=== PATIENT | female | born 1960 | race Caucasian/White ===

== ENCOUNTER → 2017-10-12 | Outpatient (CLI) | payer OTHER ==
--- NOTE | 2017-10-12 10:02 | BD ---
EXAMINATION TYPE: MG DEXA axial skeleton. DATE OF EXAM: 10/12/2017 COMPARISON: NONE CLINICAL HISTORY: osteopenia Height: 5' Weight: 147 FRAX RISK QUESTIONS: Alcohol (3 or more units per day): no Family History (Parent hip fracture): no Glucocorticoids (More than 3mos): no (Ex: prednisone, prednisolone, methylprednisolone, dexamethasone, and hydrocortisone). History of Fracture in Adulthood: no Secondary Osteoporosis: 1. Type 1 Diabetes: no 2. Hyperthyroidism: no 3. Menopause before 45: no 4. Malnutrition: no 5. Chronic liver disease: no Rheumatoid Arthritis: no Current Tobacco Use: no RISK FACTORS HISTORY OF: Diet low in dairy products/other sources of calcium: Postmenopausal woman: MEDICATIONS: Additional Medications: heart, cholsterol,singulair, anxiety, sleep aid Additional History: EXAM MEASUREMENTS: Bone mineral densitometry was performed using the [employer] System. Bone mineral density as measured about the Lumbar spine is: ----- L1-L4(G/cm2): 1.129 T Score Values are as follows: ----- L2: -0.3 ----- L3: -0.1 ----- L4: -0.3 ----- L1-L4: -0.4 Bone mineral density about the R hip (g/cm2): 0.793 Bone mineral density about the L hip (g/cm2): 0.807 T Score values are as follows: -----R Neck: -1.8 -----L Neck: -1.7 -----R Total: -1.0 -----L Total: -0.8 IMPRESSION: Osteopenia (T Score between -2.5 and -1). There is slightly increased risk of fracture and the patient may be considered for treatment. Re-Screen 2-5 years. NOTE: T-SCORE=SD OF THE YOUNG ADULT MEAN.
== END | disposition home or self-care (01) ==
LOC: RADBDWWP 09:21
PROVIDERS: ATTEND Obstetrics & Gynecology
DX: M85.80 Other specified disorders of bone density and structure, unspecified site (principal)
CPT/HCPCS: 77080

== ENCOUNTER → 2018-09-18 | Outpatient (CLI) | payer OTHER ==
--- NOTE | 2018-09-21 16:55 | MM ---
Reason for exam: screening (asymptomatic). Last mammogram was performed 1 year and 1 month ago. History: Family history of breast cancer in maternal grandmother and breast cancer in maternal cousin at age 28. Benign left mammotome panel of the left breast, September 16, 2006. Reductions of both breasts, October 2005. Benign excisional biopsy of the right breast, 1980. Took hormonal contraceptives for 5 years. MG Screening Mammo w CAD Bilateral CC and MLO view(s) were taken. Prior study comparison: August 10, 2017, bilateral MG screening mammo w CAD. July 21, 2016, bilateral MG 3d screening mammo w/cad. There are scattered fibroglandular densities. There are benign-appearing bilateral calcification. No significant changes when compared with prior studies. ASSESSMENT: Benign, BI-RAD 2 RECOMMENDATION: Routine screening mammogram of both breasts in 1 year.
== END ==
LOC: RADMAMWWP 13:09
PROVIDERS: ATTEND Obstetrics & Gynecology
DX: Z12.31 Encounter for screening mammogram for malignant neoplasm of breast (principal)
CPT/HCPCS: 77067

== ENCOUNTER → 2019-10-15 | Outpatient (CLI) | payer OTHER ==
--- NOTE | 2019-10-15 16:55 | BD ---
EXAMINATION TYPE: Axial Bone Density DATE OF EXAM: 10/15/2019 COMPARISON: NONE CLINICAL HISTORY: 57-year-old female postmenopausal screening Height: 5 FT Weight: 152 FRAX RISK QUESTIONS: Alcohol (3 or more units per day): NO Family History (Parent hip fracture): NO Glucocorticoids (More than 3mos): NO (Ex: prednisone, prednisolone, methylprednisolone, dexamethasone, and hydrocortisone). History of Fracture in Adulthood: NO Secondary Osteoporosis: 1. Type 1 Diabetes: NO 2. Hyperthyroidism: NO 3. Menopause before 45: PART AGE 42 4. Malnutrition: NO 5. Chronic liver disease: NO Rheumatoid Arthritis: NO Current Tobacco Use: NO RISK FACTORS HISTORY OF: Active: YES Postmenopausal woman: PART AGE 42 UNSURE MENOPAUSE Lost more than 2 inches in height since high school: YES MEDICATIONS: Additional Medications: BYSTOLIC, HEART MEDS, SIMVASTATIN, GLUCOPHAGE, FISH OIL ,SINGULAIR, Additional History: EXAM MEASUREMENTS: Bone mineral densitometry was performed using the [employer] System. Bone mineral density as measured about the Lumbar spine is: ----- L1-L4(G/cm2): 1.142 T Score Values are as follows: ----- L2: 0.1 ----- L3: -0.1 ----- L4: -0.1 ----- L1-L4: -0.3 Bone mineral density has: INCREASED 1.6 % since study of: 2018 Bone mineral density about the R hip (g/cm2): 0.707 Bone mineral density about the L hip (g/cm2): 0.749 T Score values are as follows: -----R Neck: -2.4 -----L Neck: -2.1 -----R Total: -1.3 -----L Total: -1.3 Bone mineral density has: DECREASED -4.9 % since study of: 2018 IMPRESSION: Osteopenia (T Score between -2.5 and -1). There is slightly increased risk of fracture and the patient may be considered for treatment. Re-Screen 2-5 years. NOTE: T-SCORE=SD OF THE YOUNG ADULT MEAN.
--- NOTE | 2019-10-16 09:56 | MM ---
Reason for exam: screening (asymptomatic). Last mammogram was performed 1 year and 1 month ago. History: Family history of breast cancer in maternal grandmother and breast cancer in maternal cousin at age 28. Benign left mammotome panel of the left breast, September 16, 2006. Reductions of both breasts, October 2005. Benign excisional biopsy of the right breast, 1980. Took hormonal contraceptives for 5 years. Physical Findings: A clinical breast exam by your physician is recommended on an annual basis and results should be correlated with mammographic findings. MG 3D Screening Mammo W/Cad Bilateral CC and MLO view(s) were taken. Prior study comparison: September 18, 2018, bilateral MG screening mammo w CAD. August 10, 2017, bilateral MG screening mammo w CAD. There are scattered fibroglandular densities. No significant changes when compared with prior studies. ASSESSMENT: Benign, BI-RAD 2 RECOMMENDATION: Routine screening mammogram of both breasts in 1 year.
== END | disposition home or self-care (01) ==
LOC: RADMAMWWP 10:19
PROVIDERS: ATTEND Obstetrics & Gynecology
DX: Z12.31 Encounter for screening mammogram for malignant neoplasm of breast (principal); M85.80 Other specified disorders of bone density and structure, unspecified site; N95.1 Menopausal and female climacteric states
CPT/HCPCS: 77063; 77067; 77080

== ENCOUNTER → 2020-02-06 | Outpatient (CLI) | payer OTHER ==
[2020-02-06 13:16] LABS: Basophils % (A) 1 %; Eosinophils # (A) 0.2 k/uL (0-0.7); Eosinophils % (A) 3 %; HCT 41.4 % (34.0-46.0); HGB 13.7 gm/dL (11.4-16.0); Lymphocytes # (A) 2.2 k/uL (1.0-4.8); Lymphocytes % (A) 36 %; MCH 30.4 pg (25.0-35.0); MCV 91.9 fL (80.0-100.0); Mean Platelet Volume 7.9; Monocytes # (A) 0.2 k/uL (0-1.0); Monocytes % (A) 4 %; Neutrophils # (A) 3.4 k/uL (1.3-7.7); Neutrophils % (A) 56 %; Platelet Count 307 k/uL (150-450); RBC 4.51 m/uL (3.80-5.40); RDW 12.7 % (11.5-15.5); WBC 6.1 k/uL (3.8-10.6)
[2020-02-06 18:40] LABS: African American GFR (CKD) 94.2 (60.0-200.0); Albumin 4.4 g/dL (3.80-4.90); Anion Gap 9.8 mmol/L (4.00-12.00); BUN/Creat Ratio 16.25 Ratio (12.00-20.00); Calcium 9.3 mg/dL (8.7-10.3); Carbon Dioxide 26.2 mmol/L (21.6-31.8); Globulin 2.2 g/dL (1.6-3.3); Non-African American GFR(CKD) 81.3 (60.0-200.0); Potassium 4.2 mmol/L (3.5-5.5); Total Bilirubin 0.3 mg/dL (0.2-1.2); Total Protein 6.6 g/dL (6.2-8.2)
== END | disposition home or self-care (01) ==
LOC: LABWHC1 11:02
PROVIDERS: ATTEND Nurse Practitioner Acute Care
DX: R41.3 Other amnesia (principal)
CPT/HCPCS: 36415; 80053; 85025

== ENCOUNTER → 2020-07-05 | Outpatient (CLI) | payer OTHER ==
[2020-07-05 18:11] LABS: African American GFR (CKD) 110.7 (60.0-200.0); Albumin 4.7 g/dL (3.80-4.90); Albumin/Globulin Ratio 1.96 (1.60-3.17); Anion Gap 7.9 mmol/L (4.00-12.00); BUN/Creat Ratio 17.14 Ratio (12.00-20.00); Calcium 9.6 mg/dL (8.7-10.3); Carbon Dioxide 27.1 mmol/L (21.6-31.8); Chol/HDL Ratio 2.85; Globulin 2.4 g/dL (1.6-3.3); LDL Cholesterol,Calculated 75.2 mg/dL (0.0-131.0); Non-African American GFR(CKD) 95.5 (60.0-200.0); Potassium 4.3 mmol/L (3.5-5.5); Total Bilirubin 0.5 mg/dL (0.3-1.2); Total Protein 7.1 g/dL (6.2-8.2); VLDL Calculation 35.8 mg/dL (5.00-40.00)
[2020-07-05 20:29] LABS: Hemoglobin A1C 6.7 % (4.0-6.0)
[2020-07-05 20:44] LABS: Microalbumin Creatinine Ratio <30 mg/g Creat (0-30); Urine Creatinine 12.6 mg/dL
== END | disposition home or self-care (01) ==
LOC: LABMAIN 10:23
PROVIDERS: ATTEND Internal Medicine Endocrinology, Diabetes & Metabolism
DX: E11.65 Type 2 diabetes mellitus with hyperglycemia (principal)
CPT/HCPCS: 36415; 80053; 80061; 82043; 82570; 83036; 84443

== ENCOUNTER → 2020-09-01 | Outpatient (CLI) | payer OTHER | END | disposition home or self-care (01) | LOC: LABWHC1 09:19 | PROVIDERS: ATTEND Internal Medicine | DX: R05 Cough (principal); R50.9 Fever, unspecified | CPT/HCPCS: U0003; C9803 ==

== ENCOUNTER → 2020-10-13 | Outpatient (CLI) | payer OTHER ==
[2020-10-13 20:52] LABS: African American GFR (CKD) 110.7 (60.0-200.0); Albumin 4.8 g/dL (3.80-4.90); Albumin/Globulin Ratio 2.29 (1.60-3.17); Anion Gap 7.6 mmol/L (4.00-12.00); BUN/Creat Ratio 15.71 Ratio (12.00-20.00); Calcium 9.9 mg/dL (8.7-10.3); Carbon Dioxide 30.4 mmol/L (21.6-31.8); Chol/HDL Ratio 2.69; Globulin 2.1 g/dL (1.6-3.3); Non-African American GFR(CKD) 95.5 (60.0-200.0); Potassium 4.4 mmol/L (3.5-5.5); Total Bilirubin 0.3 mg/dL (0.2-1.2); Total Protein 6.9 g/dL (6.2-8.2)
[2020-10-13 22:26] LABS: Hemoglobin A1C 6.8 % (4.0-6.0)
== END | disposition home or self-care (01) ==
LOC: LABWHC1 10:29
PROVIDERS: ATTEND Internal Medicine Endocrinology, Diabetes & Metabolism
DX: E11.9 Type 2 diabetes mellitus without complications (principal)
CPT/HCPCS: 36415; 80053; 80061; 82043; 82570; 83036; 84443

== ENCOUNTER → 2021-01-16 | Outpatient (CLI) | payer OTHER ==
--- NOTE | 2021-01-19 11:04 | MM ---
Reason for exam: screening (asymptomatic). Last mammogram was performed 1 year and 3 months ago. History: Family history of breast cancer in maternal grandmother and breast cancer in maternal cousin at age 28. Benign left mammotome panel of the left breast, September 16, 2006. Reductions of both breasts, October 2005. Benign excisional biopsy of the right breast, 1980. Took hormonal contraceptives for 5 years. Physical Findings: A clinical breast exam by your physician is recommended on an annual basis and results should be correlated with mammographic findings. MG Screening Mammo w CAD Bilateral CC and MLO view(s) were taken. Prior study comparison: October 15, 2019, bilateral MG 3d screening mammo w/cad. September 18, 2018, bilateral MG screening mammo w CAD. There are scattered fibroglandular densities. There are benign appearing round dystrophic calcifications bilaterally. Asymmetric breast tissue in the right breast, stable. There is no discrete abnormality. ASSESSMENT: Benign, BI-RAD 2 RECOMMENDATION: Routine screening mammogram of both breasts in 1 year.
== END | disposition home or self-care (01) ==
LOC: RADMAMWWP 10:01
PROVIDERS: ATTEND Obstetrics & Gynecology
DX: Z12.31 Encounter for screening mammogram for malignant neoplasm of breast (principal); Z80.3 Family history of malignant neoplasm of breast
CPT/HCPCS: 77067

== ENCOUNTER → 2021-03-23 | Outpatient (CLI) | payer OTHER ==
[2021-03-23 15:11] LABS: Basophils # (A) 0.04 X 10*3/uL (0.00-0.10); Basophils % (A) 0.8 %; Eosinophils # (A) 0.13 X 10*3/uL (0.04-0.35); Eosinophils % (A) 2.4 %; HCT 39.8 % (37.2-46.3); HGB 12.9 g/dL (12.0-15.0); Lymphocytes # (A) 2.26 X 10*3/uL (0.90-5.00); Lymphocytes % (A) 42.4 %; MCH 29.5 pg (27.0-32.0); MCHC 32.4 g/dL (32.0-37.0); MCV 90.9 fL (80.0-97.0); Mean Platelet Volume 10.6 fL (9.5-12.2); Monocytes # (A) 0.36 X 10*3/uL (0.20-1.00); Monocytes % (A) 6.8 %; Neutrophils # (A) 2.54 X 10*3/uL (1.80-7.70); Neutrophils % (A) 47.6 %; Platelet Count 283 X 10*3/uL (140-440); RBC 4.38 X 10*6/uL (4.10-5.20); RDW 12.9 % (11.5-14.5); WBC 5.33 X 10*3/uL (4.50-10.00)
[2021-03-23 15:24] LABS: African American GFR (CKD) 93.5 (60.0-200.0); Albumin 4.4 g/dL (3.80-4.90); Albumin/Globulin Ratio 1.76 (1.60-3.17); Anion Gap 8.7 mmol/L (4.00-12.00); BUN/Creat Ratio 17.5 Ratio (12.00-20.00); Calcium 9.6 mg/dL (8.7-10.3); Carbon Dioxide 25.3 mmol/L (21.6-31.8); Chol/HDL Ratio 2.73; Globulin 2.5 g/dL (1.6-3.3); LDL Cholesterol,Calculated 77.2 mg/dL (0.0-131.0); Non-African American GFR(CKD) 80.7 (60.0-200.0); Potassium 4.2 mmol/L (3.5-5.5); Total Bilirubin 0.4 mg/dL (0.3-1.2); Total Protein 6.9 g/dL (6.2-8.2); VLDL Calculation 29.8 mg/dL (5.00-40.00)
[2021-03-23 15:59] LABS: Hemoglobin A1C 6.7 % (4.0-6.0)
== END | disposition home or self-care (01) ==
LOC: LABWHC1 09:49
PROVIDERS: ATTEND Internal Medicine
DX: I10 Essential (primary) hypertension (principal); E11.9 Type 2 diabetes mellitus without complications; E78.00 Pure hypercholesterolemia, unspecified; R41.3 Other amnesia
CPT/HCPCS: 36415; 80053; 80061; 82306; 82607; 83036; 84207; 85025

== ENCOUNTER → 2022-02-15 | Outpatient (CLI) | payer OTHER, BC ==
--- NOTE | 2022-02-15 17:42 | BD ---
EXAMINATION TYPE: Axial Bone Density DATE OF EXAM: 02/15/2022 COMPARISON: 02/15/2020 CLINICAL HISTORY: 61 years year old Female. ICD-10 CODE: M58.89 DISORDER OF BONE DENSITY Height: 60 IN Weight: 158 LBS RISK FACTORS HISTORY OF: Active: YES Diet low in dairy products/other sources of calcium: YES Postmenopausal woman: PARTIAL HYST AGE 56 Lost more than 2 inches in height since high school: YES 3 " MEDICATIONS: Additional Medications: CALCIUM, VIT D, BYSTOLIC, CRESTOR, GLUCOPHAGE, CELEXA, PRILOSEC, SINGULAIR, A MBIEN, ASPIRIN, FISH OIL, ZYRTEC, MULTI VIT EXAM MEASUREMENTS: Bone mineral densitometry was performed using the [employer] System. Bone mineral density as measured about the Lumbar spine is: ----- L1-L4(G/cm2): 1.117 T Score Values are as follows: ----- L1: -1.3 ----- L2: -0.7 ----- L3: -0.2 ----- L4: -0.1 ----- L1-L4: -0.5 Bone mineral density has: Decreased -2.6% since study of: 10/15/2019 Bone mineral density about the R hip (g/cm2): 0.752 Bone mineral density about the L hip (g/cm2): 0.757 T Score values are as follows: -----R Neck: -2.1 -----L Neck: -2.0 -----R Total: -1.4 -----L Total: -1.0 Bone mineral density has: Increased 0.9% since study of: 10/15/2019 FRAX%s: The graph provided illustrates a 9.5 chance for a major osteoporotic fx and a 1.3 chance for the hips probability for fx in 10 years time. IMPRESSION: Osteopenia (T Score between -2.5 and -1). There is slightly increased risk of fracture and the patient may be considered for treatment. Re-Screen 2-5 years. NOTE: T-SCORE=SD OF THE YOUNG ADULT MEAN.
--- NOTE | 2022-02-16 13:24 | MM ---
Reason for Exam: Screening (asymptomatic). Last mammogram was performed 1 year(s) and 1 month(s) ago. Patient History: Menarche at age 15. First Full-Term at age 24. Hysterectomy at age 42. Patient used Hormonal Contraceptives for 5 years. 1980, Benign Excisional Biopsy on the right side. 10/2005, Bilateral Reduction. 09/16/2006, Benign Core Biopsy on the left side. Maternal grandmother had breast cancer, age 30. Maternal cousin had breast cancer, age 28. Risk Values: Shanti 5 year model risk: 1.8%. NCI Lifetime model risk: 8.9%. Prior Study Comparison: 09/18/2018 Bilateral Screening Mammogram, [facility]. 10/15/2019 Bilateral Screening Mammogram, [facility]. 01/16/2021 Bilateral Screening Mammogram, [facility]. Tissue Density: There are scattered fibroglandular densities. Findings: Analyzed By CAD. No suspicious groups of microcalcifications, spiculated or lobular masses, architectural distortion or other secondary signs of malignancy are mammographically apparent. Overall Assessment: Benign, BI-RAD 2 Management: Screening Mammogram of both breasts in 1 year. A negative mammogram report should not preclude additional follow up of suspicious palpable abnormalities. Patient should continue monthly self breast exam. A clinical breast exam by your physician is recommended on an annual basis and results should be correlated with mammographic findings. Electronically signed and approved by: Inderjit Landa D.O. Radiologis
== END | disposition home or self-care (01) ==
LOC: RADBDWWP 11:19
PROVIDERS: ATTEND Internal Medicine
DX: Z12.39 Encounter for other screening for malignant neoplasm of breast (principal); M85.89 Other specified disorders of bone density and structure, multiple sites
CPT/HCPCS: 77063; 77067; 77080

== ENCOUNTER → 2023-02-24 | Outpatient (CLI) | payer BC ==
--- NOTE | 2023-02-25 06:54 | MM ---
Reason for Exam: Screening (asymptomatic). Last screening mammogram was performed 12 month(s) ago. Patient History: Menarche at age 15. First Full-Term at age 24. Hysterectomy at age 42. Patient used Hormonal Contraceptives for 5 years. 1980, Benign Excisional Biopsy on the right side. 10/2005, Bilateral Reduction. 09/16/2006, Benign Core Biopsy on the left side. Maternal grandmother had breast cancer, age 30. Maternal cousin had breast cancer, age 28. Risk Values: Shanti 5 year model risk: 1.8%. NCI Lifetime model risk: 8.7%. Prior Study Comparison: 10/15/2019 Bilateral Screening Mammogram, [facility]. 01/16/2021 Bilateral Screening Mammogram, [facility]. 02/15/2022 Bilateral MG 3D screening mammo w/cad, [facility]. Tissue Density: There are scattered fibroglandular densities. Findings: Analyzed By CAD. A few loosely grouped benign appearing round and dystrophic calcifications bilaterally are redemonstrated. There is no suspicious group of microcalcifications or new suspicious mass in either breast. Overall Assessment: Benign, BI-RAD 2 Management: Screening Mammogram of both breasts in 1 year. . Patient should continue monthly self-breast exams. A clinical breast exam by your physician is recommended on an annual basis. This exam should not preclude additional follow-up of suspicious palpable abnormalities. Note on Shanti scores and lifetime risk: 1. A Shanti score greater than 3% is considered moderate risk. If this is the case, consider specialist referral to assess eligibility for a risk reducing agent. 2. If overall lifetime risk for the development of breast cancer is 20% or higher, the patient may qualify for future screening with alternating mammogram and breast MRI. Electronically signed and approved by: Toney Retana M.D.
== END | disposition home or self-care (01) ==
LOC: RADMAMWWP 13:15
PROVIDERS: ATTEND Obstetrics & Gynecology
DX: Z12.31 Encounter for screening mammogram for malignant neoplasm of breast (principal); Z80.3 Family history of malignant neoplasm of breast
CPT/HCPCS: 77063; 77067

== ENCOUNTER → 2024-07-13 | Outpatient (CLI) | payer BC ==
--- NOTE | 2024-07-16 10:03 | MM ---
Reason for Exam: Screening (asymptomatic). Last mammogram was performed 1 year(s) and 5 month(s) ago. Patient History: Menarche at age 15. First Full-Term at age 24. Hysterectomy at age 42. Patient used Hormonal Contraceptives for 5 years. 1980, Benign Excisional Biopsy on the right side. 10/2005, Bilateral Reduction. 09/16/2006, Benign Core Biopsy on the left side. Maternal grandmother had breast cancer, age 30. Maternal cousin had breast cancer, age 28. Last menstrual period: Risk Values: Shanti 5 year model risk: 1.9%. NCI Lifetime model risk: 8.4%. Prior Study Comparison: 01/16/2021 Bilateral Screening Mammogram, [facility]. 02/15/2022 Bilateral MG 3D screening mammo w/cad, [facility]. 02/24/2023 Bilateral MG 3D screening mammo w/cad, [facility]. Tissue Density: There are scattered areas of fibroglandular density. Findings: Analyzed By CAD. There is no suspicious group of microcalcifications or new suspicious mass in either breast. Overall Assessment: Benign, BI-RAD 2 Management: Screening Mammogram of both breasts in 1 year. . Patient should continue monthly self-breast exams. A clinical breast exam by your physician is recommended on an annual basis. This exam should not preclude additional follow-up of suspicious palpable abnormalities. Note on Shanti scores and lifetime risk: 1. A Shanti score greater than 3% is considered moderate risk. If this is the case, consider specialist referral to assess eligibility for a risk reducing agent. 2. If overall lifetime risk for the development of breast cancer is 20% or higher, the patient may qualify for future screening with alternating mammogram and breast MRI. [facility], , 07/16/2024 10:01 AM. Electronically signed and approved by: Almas Peraza M.D. Radiologis
--- NOTE | 2024-07-23 08:25 | BD ---
EXAMINATION TYPE: Axial Bone Density DATE OF EXAM: 07/13/2024 CLINICAL HISTORY: 63 years old Female. ICD-10 CODE: OSTEOPOROSIS M81.0 Height: 60" Weight: 158lbs FRAX RISK QUESTIONS: Alcohol (3 or more units per day): No Family History (Parent hip fracture): No Glucocorticoids (More than 3mos): No (Ex: prednisone, prednisolone, methylprednisolone, dexamethasone, and hydrocortisone). History of Fracture in Adulthood: Yes Secondary Osteoporosis: 1. Type 1 Diabetes: No 2. Hyperthyroidism: No 3. Menopause before 45: Yes, possibly 4. Malnutrition: No 5. Chronic liver disease: No Rheumatoid Arthritis: No Current Tobacco Use: No RISK FACTORS HISTORY OF: Hip Fracture (Right/Left): No Spine Fracture: No History of Wrist Fracture: No Surgery to Spine/Hip(right/left)/Wrist (right/left): No MEDICATIONS: Thyroid Medications: Which medication: No Osteoporosis Medications: Yes Which medication: Actonel How Lon to 1.5 years EXAM MEASUREMENTS: Bone mineral densitometry was performed using the [employer] System. Bone mineral density as measured about the Lumbar spine is: ----- L1-L4(G/cm2): 1.231 T Score Values are as follows: ----- L1: -0.8 ----- L2: 0.0 ----- L3: 0.8 ----- L4: 1.3 ----- L1-L4: 0.4 Z Score Values are as follows: ----- L1: 0.4 ----- L2: 1.2 ----- L3: 2.0 ----- L4: 2.5 ----- L1-L4: 1.6 Bone mineral density has: Increased 10.2% since study of: 02/15/2022 Bone mineral density about the R hip (g/cm2): 0.929 Bone mineral density about the L hip (g/cm2): 0.975 T Score values are as follows: -----R Neck: -1.6 -----L Neck: -1.3 -----R Total: -0.6 -----L Total: -0.3 Z Score values are as follows: -----R Neck: -0.4 -----L Neck: -0.1 -----R Total: 0.3 -----L Total: 0.6 Bone mineral density has: Increased 11.1% since study of: 02/15/2022 FRAX%s: The graph provided illustrates a 8.5% chance for a major osteoporotic fx and a 0.8% chance fo r the hips probability for fx in 10 years time. IMPRESSION: Osteopenia (T Score between -2.5 and -1). There is slightly increased risk of fracture and the patient may be considered for treatment. Re-Screen 2-5 years. NOTE: T-SCORE=SD OF THE YOUNG ADULT MEAN. [facility], , 07/23/2024 8:22 AM
== END | disposition home or self-care (01) ==
LOC: RADMAMWWP 10:56
PROVIDERS: ATTEND Obstetrics & Gynecology
DX: Z12.31 Encounter for screening mammogram for malignant neoplasm of breast (principal); N95.8 Other specified menopausal and perimenopausal disorders; Z80.3 Family history of malignant neoplasm of breast; R92.323 Mammographic fibroglandular density, bilateral breasts; M81.8 Other osteoporosis without current pathological fracture
CPT/HCPCS: 77063; 77067; 77080